=== PATIENT | female | born 1995 | race Caucasian/White ===

== ENCOUNTER 2023-08-25 12:43 | Outpatient (CLI) ==
[~2023-08-25] VITALS: Ht 157.5 cm; Wt 82.8 kg
[2023-08-25 13:09] VITALS: BP 118/68
[2023-08-25] MEDS ORDERED: ECOT81TA5 PO (13:12)
[2023-08-25] MEDS ORDERED: ACET-897 PO (13:12)
[2023-08-25] MEDS ORDERED: LEXA1TAB2 PO (13:12)
[2023-08-25] MEDS ORDERED: HOME MED LIST COMPLETE! XX SCH (13:15)
[2023-08-25] MEDS ORDERED: LOMOTIL 2.5MG/0.025MG TABLET PO ONE (15:15)
== END 2023-08-25 15:08 | disposition home or self-care (01) ==
LOC: M LDO 12:43
PROVIDERS: ATTEND Obstetrics & Gynecology
DX: O99.613 Diseases of the digestive system complicating pregnancy, third trimester (principal); K52.9 Noninfective gastroenteritis and colitis, unspecified; Z3A.33 33 weeks gestation of pregnancy; Z79.82 Long term (current) use of aspirin; Z79.899 Other long term (current) drug therapy
CPT/HCPCS: 59025; G0463

== ENCOUNTER 2023-09-02 17:00 | Outpatient (CLI) | payer OTHER ==
[~2023-09-02] VITALS: Ht 157.5 cm; Wt 84.3 kg
[~2023-09-02 17:00] MED LIST: ACET-897 PO; ECOT81TA5 PO; LEXA1TAB2 PO
[2023-09-02 18:00] LABS: HEMATOCRIT 28.5 % (36.0-47.0); HEMOGLOBIN 9.3 g/dl (12.0-15.5); MEAN CORPUSCULAR HEMOGLOBIN 28.1 pg (27.0-33.0); MEAN CORPUSCULAR HGB CONC 32.6 g/dl (32.0-36.5); MEAN CORPUSCULAR VOLUME 86.1 fl (80.0-96.0); PLATELET COUNT, AUTOMATED 242 10^3/uL (150-450); RED BLOOD COUNT 3.31 10^6/uL (4.00-5.40); WHITE BLOOD COUNT 11.7 10^3/uL (4.0-10.0)
[2023-09-02 18:12] LABS: INR 1.09; PROTHROMBIN TIME 13.8 SECONDS (12.5-14.5)
[2023-09-02 20:10] VITALS: BP 130/58
== END 2023-09-02 20:47 | disposition home or self-care (01) ==
LOC: M LDO 17:00
PROVIDERS: ATTEND Obstetrics & Gynecology
DX: O9A.213 Injury, poisoning and certain other consequences of external causes complicating pregnancy, third trimester (principal); S30.1XXA Contusion of abdominal wall, initial encounter; W01.0XXA Fall on same level from slipping, tripping and stumbling without subsequent striking against object, initial encounter; Y92.9 Unspecified place or not applicable; O99.013 Anemia complicating pregnancy, third trimester; Z3A.34 34 weeks gestation of pregnancy; O99.283 Endocrine, nutritional and metabolic diseases complicating pregnancy, third trimester; E78.72 Smith-Lemli-Opitz syndrome; Z87.51 Personal history of pre-term labor; Z79.899 Other long term (current) drug therapy; Z79.82 Long term (current) use of aspirin
CPT/HCPCS: 36415; 59025; 76815; 85027; 85384; 85610; G0463

== ENCOUNTER 2023-09-17 11:29 | Outpatient (CLI) | payer OTHER ==
[~2023-09-17] VITALS: Ht 160 cm; Wt 85.0 kg
[~2023-09-17 11:29] MED LIST changes: +ALBUTEROL SULFATE 2.5MG/0.5ML INH NEB SOLN INH PRN; +EPINEPHrine INJ 1 MG/ML 1ML AMP IM PRN; +diphenhydrAMINE 50MG/ML VIAL IV PRN; +methylPREDNISolone 125MG 2ML VIAL IV PRN
[2023-09-17 11:54] VITALS: BP 136/62; O2SAT 97
[2023-09-17] MEDS ORDERED: NS 1,000 ML IV SCH (12:00)
[2023-09-17] MEDS ORDERED: IRON SUCROSE 300 MG in NS 250 ML OVER 90 MIN. IV ONE (12:00)
[2023-09-17 13:49] VITALS: BP 130/60; O2SAT 96
== END 2023-09-17 13:50 ==
LOC: M INFU 11:29
PROVIDERS: ATTEND Obstetrics & Gynecology
DX: D50.9 Iron deficiency anemia, unspecified (principal)
CPT/HCPCS: 96365; 96366; J1756

== ENCOUNTER 2023-09-25 09:54 | Emergency (ER) | payer OTHER ==
[~2023-09-25] VITALS: Ht 157.5 cm; Wt 86.5 kg
[~2023-09-25 09:54] MED LIST changes: -ALBUTEROL SULFATE 2.5MG/0.5ML INH NEB SOLN INH PRN; -EPINEPHrine INJ 1 MG/ML 1ML AMP IM PRN; -diphenhydrAMINE 50MG/ML VIAL IV PRN; -methylPREDNISolone 125MG 2ML VIAL IV PRN
[2023-09-25] MEDS ORDERED: NS 1,000 ML IV SCH (13:05)
[2023-09-25 13:17] LABS: BASO % 0.3 % (0.0-1.0); EOS # 0.1 10^3/uL (0.0-0.5); EOS % 0.7 % (0.0-3.0); HEMATOCRIT 32.8 % (36.0-47.0); HEMOGLOBIN 10.4 g/dl (12.0-15.5); LYMPH # 2.2 10^3/uL (1.5-5.0); MEAN CORPUSCULAR HEMOGLOBIN 27.6 pg (27.0-33.0); MEAN CORPUSCULAR HGB CONC 31.7 g/dl (32.0-36.5); MONO # 0.6 10^3/uL (0.0-0.8); MONO % 5.4 % (2.0-8.0); NEUTROPHILS # 8.6 10^3/uL (1.5-8.5); NEUTROPHILS % 73.2 % (36.0-66.0); PLATELET COUNT, AUTOMATED 232 10^3/uL (150-450); RED BLOOD COUNT 3.77 10^6/uL (4.00-5.40); WHITE BLOOD COUNT 11.7 10^3/uL (4.0-10.0)
[2023-09-25 13:35] LABS: LIPASE 27 U/L (12-53)
[2023-09-25 13:38] LABS: ALBUMIN 2.9 G/DL (3.2-5.2); ALKALINE PHOSPHATASE 134 U/L (46-116); ALT/SGPT 13 U/L (7.0-40); AST/SGOT 11 U/L (<34); BILIRUBIN,DIRECT < 0.1 MG/DL (<0.4); BILIRUBIN,TOTAL 0.3 MG/DL (0.3-1.2); BLOOD UREA NITROGEN 6 MG/DL (9-23); CALCIUM LEVEL 8.5 MG/DL (8.5-10.1); CARBON DIOXIDE LEVEL 22 MMOL/L (20-31); CHLORIDE LEVEL 107 MMOL/L (98-107); CREATININE FOR GFR 0.46 MG/DL (0.55-1.30); GLOMERULAR FILTRATION RATE > 60.0 (>60); GLUCOSE, FASTING 75 MG/DL (60-100); POTASSIUM SERUM 4.2 MMOL/L (3.5-5.1); SODIUM LEVEL 139 MMOL/L (136-145); TOTAL PROTEIN 6.4 G/DL (5.7-8.2)
[2023-09-25 13:40] LABS: FREE T4 0.71 NG/DL (0.89-1.76); THYROID STIMULATING HORMONE 1.093 uIU/ML (0.55-4.78)
[2023-09-25] MEDS ORDERED: ISOVUE-370 76% 100ML VIAL As Ordered ONE (14:15)
[2023-09-25 14:24] LABS: RSV AMPLIFICATION NEGATIVE (NEGATIVE)
[2023-09-25 15:37] VITALS: BP 116/67
[2023-09-25 15:39] VITALS: O2SAT 99
[2023-09-25 15:40] VITALS: TEMP 97.6
[2023-09-25] MEDS ORDERED: PRENTAB9 PO (16:06)
== END 2023-09-25 15:50 | disposition other institution (70) ==
LOC: M ED 09:54
DX: O99.413 Diseases of the circulatory system complicating pregnancy, third trimester (principal); O62.4 Hypertonic, incoordinate, and prolonged uterine contractions; I72.8 Aneurysm of other specified arteries; D64.9 Anemia, unspecified; Z79.82 Long term (current) use of aspirin; Z79.899 Other long term (current) drug therapy
CPT/HCPCS: 71275; 80048; 80076; 83690; 84439; 84443; 84484; 85025; 85379; 87631; 93005; 93041; 93970; 94760; 96360; 96361; 99285; Q9967

== ENCOUNTER 2023-09-25 15:55 | Observation (INO) | payer OTHER ==
[~2023-09-25] VITALS: Ht 157.5 cm; Wt 86.5 kg
[2023-09-25] MEDS ORDERED: PRENTAB9 PO (16:06)
[2023-09-25 16:08] VITALS: BP 136/72
[2023-09-25] MEDS ORDERED: LR 1,000 ML IV SCH (16:20)
[2023-09-25 16:44] VITALS: BP 134/61
[2023-09-25 17:21] VITALS: BP 132/63
== END 2023-09-25 17:17 | disposition short-term general hospital (02) ==
LOC: M LDO 15:55 → M LDI 15:56 → M LDO 17:17
PROVIDERS: ADMIT Advanced Practice Midwife; ATTEND Advanced Practice Midwife
DX: O88.813 Other embolism in pregnancy, third trimester (principal); O99.413 Diseases of the circulatory system complicating pregnancy, third trimester; Z3A.38 38 weeks gestation of pregnancy; I72.8 Aneurysm of other specified arteries
CPT/HCPCS: 59025; 71275; 80048; 80076; 83690; 84439; 84443; 84484; 85025; 85379; 87631; 93005; 93041; 93970; 94760; 96360; 96361; 96374; 99285; G0463; Q9967

== ENCOUNTER → 2025-02-23 | Outpatient (CLI) | payer OTHER ==
[~2025-02-23] MED LIST changes: +PRENTAB9 PO
== END ==
LOC: M PLAIMG 15:04
PROVIDERS: ATTEND Surgery
DX: I72.8 Aneurysm of other specified arteries (principal)

== ENCOUNTER 2025-03-08 14:51 | Emergency (ER) | payer OTHER ==
[~2025-03-08] VITALS: Ht 157.5 cm; Wt 79.2 kg
[2025-03-08 16:22] LABS: BASO % 0.5 % (0.0-1.0); EOS # 0.1 10^3/uL (0.0-0.5); EOS % 1.5 % (0.0-3.0); HEMATOCRIT 40.3 % (36.0-47.0); HEMOGLOBIN 13.4 g/dl (12.0-15.5); LYMPH # 2.7 10^3/uL (1.5-5.0); LYMPH % 33.3 % (24.0-44.0); MEAN CORPUSCULAR HEMOGLOBIN 29.7 pg (27.0-33.0); MEAN CORPUSCULAR HGB CONC 33.3 g/dl (32.0-36.5); MEAN CORPUSCULAR VOLUME 89.4 fl (80.0-96.0); MONO # 0.7 10^3/uL (0.0-0.8); NEUTROPHILS # 4.6 10^3/uL (1.5-8.5); NEUTROPHILS % 55.5 % (36.0-66.0); PLATELET COUNT, AUTOMATED 310 10^3/uL (150-450); RED BLOOD COUNT 4.51 10^6/uL (4.00-5.40); WHITE BLOOD COUNT 8.2 10^3/uL (4.0-10.0)
[2025-03-08 16:41] LABS: BLOOD UREA NITROGEN 14 MG/DL (9-23); CALCIUM LEVEL 9.4 MG/DL (8.5-10.1); CARBON DIOXIDE LEVEL 29 MMOL/L (20-31); CHLORIDE LEVEL 104 MMOL/L (98-107); CREATININE FOR GFR 0.65 MG/DL (0.55-1.30); GLOMERULAR FILTRATION RATE > 90.0 (>60); GLUCOSE, FASTING 93 MG/DL (60-100); HCG, SERUM QUANTITATIVE < 2.6 MIU/ML (<4.2); POTASSIUM SERUM 4.5 MMOL/L (3.5-5.1); SODIUM LEVEL 140 MMOL/L (136-145)
[2025-03-08 18:26] LABS: HCG, SERUM QUALITATIVE NEGATIVE (NEGATIVE)
[2025-03-08 19:37] LABS: KETONE, URINE AUTO RFX NEGATIVE (NEGATIVE); LEUKOCYTE ESTERASE UR AUTO RFX NEGATIVE (NEGATIVE); MUCUS, URINE RFX SMALL (NEGATIVE); NITRITE, URINE AUTO RFX NEGATIVE (NEGATIVE); RBC, URINE AUTO RFX TNTC /HPF (0-3); SQUAM EPITHELIAL CELL UR AURFX 2 /HPF (0-6); WBC, URINE AUTO RFX 1 /HPF (0-3)
[2025-03-08 20:56] LABS: Trichomonas vaginalis (AMP) NOT DETECTED (NEGATIVE)
[2025-03-08 21:20] LABS: GC DNA AMPLIFICATION NEGATIVE (NEGATIVE)
[2025-03-08 22:09] VITALS: BP 116/76; TEMP 98.7; O2SAT 98
== END 2025-03-08 22:12 | disposition home or self-care (01) ==
LOC: M ED 14:51
DX: N93.8 Other specified abnormal uterine and vaginal bleeding (principal); F41.9 Anxiety disorder, unspecified; R51.9 Headache, unspecified; D64.9 Anemia, unspecified; Z79.899 Other long term (current) drug therapy

== ENCOUNTER 2025-09-28 13:52 | Outpatient (CLI) | payer OTHER ==
[~2025-09-28] VITALS: Ht 157.5 cm; Wt 82.4 kg
[2025-09-28 14:03] VITALS: BP 117/71; O2SAT 99
[2025-09-28] MEDS ORDERED: ACET-907 PO (14:16)
[2025-09-28] MEDS ORDERED: ASPI81CH33 PO (14:16)
[2025-09-28] MEDS ORDERED: HOME MED LIST COMPLETE! XX SCH (14:20)
[2025-09-28 15:27] VITALS: BP 117/67
[2025-09-28 16:10] LABS: BASO # 0.0 10^3/uL (0.0-0.2); BASO % 0.3 % (0.0-1.0); EOS # 0.1 10^3/uL (0.0-0.5); EOS % 0.6 % (0.0-3.0); LYMPH # 2.4 10^3/uL (1.5-5.0); LYMPH % 19.7 % (24.0-44.0); MONO # 0.7 10^3/uL (0.0-0.8); MONO % 5.3 % (2.0-8.0); NEUTROPHILS # 9.1 10^3/uL (1.5-8.5); NEUTROPHILS % 73.4 % (36.0-66.0); PLATELET COUNT, AUTOMATED 287 10^3/uL (150-450)
[2025-09-28 16:38] LABS: ALT/SGPT 15 U/L (7.0-40); AST/SGOT 14 U/L (<34); CALCIUM LEVEL 9.1 MG/DL (8.5-10.1); CARBON DIOXIDE LEVEL 24 MMOL/L (20-31); CHLORIDE LEVEL 106 MMOL/L (98-107); CREATININE FOR GFR 0.49 MG/DL (0.55-1.30); GLOMERULAR FILTRATION RATE > 90.0 (>60); POTASSIUM SERUM 4.2 MMOL/L (3.5-5.1); SODIUM LEVEL 139 MMOL/L (136-145)
[2025-09-28 17:20] VITALS: BP 111/57
[2025-09-28 18:13] VITALS: BP 122/69
== END 2025-09-28 18:51 | disposition home or self-care (01) ==
LOC: M LDO 13:52
PROVIDERS: ATTEND Student in an Organized Health Care Education/Training Program
DX: O26.892 Other specified pregnancy related conditions, second trimester (principal); R42 Dizziness and giddiness; Z3A.25 25 weeks gestation of pregnancy
CPT/HCPCS: 36415; 59025; 80053; 85025; 93005; G0463